=== PATIENT | female | born 1945 | race Two or more races ===

== ENCOUNTER 2019-12-30 16:03 | Emergency (ER) | payer OTHER ==
[~2019-12-30] VITALS: Ht 157.5 cm; Wt 79.4 kg
[2019-12-30] MEDS ORDERED: ALTACE10 MG (16:40)
[2019-12-30] MEDS ORDERED: EVISTA60 MG (16:40)
[2019-12-30] MEDS ORDERED: SYNTHROID100 MCG (16:40)
[2019-12-30] MEDS ORDERED: CALTRATE 600+D1 EAC1 (16:41)
== END 2019-12-30 21:49 | disposition home or self-care (01) ==
LOC: ER 16:03
DX: N39.0 Urinary tract infection, site not specified (principal); E86.0 Dehydration; K57.30 Diverticulosis of large intestine without perforation or abscess without bleeding; R10.32 Left lower quadrant pain

== ENCOUNTER 2021-05-20 09:58 | Emergency (ER) | payer OTHER ==
[~2021-05-20] VITALS: Ht 157.5 cm; Wt 70.3 kg
[~2021-05-20 09:58] MED LIST: ALTACE10 MG; CALTRATE 600+D1 EAC1; EVISTA60 MG; SYNTHROID100 MCG
[2021-05-20] MEDS ORDERED: DICY20TA PO (15:47)
[2021-06-05] MEDS ORDERED: COZAAR50 MG PO (08:54)
[2021-06-05] MEDS ORDERED: PLAQUENIL PO (08:56)
[2021-06-05] MEDS ORDERED: SKELAXIN800 MG PO (08:56)
[2021-06-05] MEDS ORDERED: GABAPENTIN100 M2 PO (08:56)
[2021-06-05] MEDS ORDERED: PROTONIX40 MG PO (08:57)
[2021-06-11] MEDS ORDERED: HYDROXYCHLOROQ200 MG (09:06)
[2021-06-11] MEDS ORDERED: OPTIMAL D31250 MCG (09:06)
[2021-06-11] MEDS ORDERED: FLUOROMETHOLONE5 ML (09:07)
[2021-06-11] MEDS ORDERED: SIMVASTATIN20 MG (09:07)
[2021-06-11] MEDS ORDERED: CLOTRIMAZOLE-BE15 G1 (09:07)
== END 2021-05-20 16:23 | disposition home or self-care (01) ==
LOC: ER 09:58
DX: K57.90 Diverticulosis of intestine, part unspecified, without perforation or abscess without bleeding (principal); R10.32 Left lower quadrant pain

== ENCOUNTER 2021-07-02 08:43 | Outpatient (CLI) | payer OTHER ==
[~2021-07-02 08:43] MED LIST changes: +CLOTRIMAZOLE-BE15 G1; +COZAAR50 MG PO; +DICY20TA PO; +FLUOROMETHOLONE5 ML; +GABAPENTIN100 M2 PO; +HYDROXYCHLOROQ200 MG; +OPTIMAL D31250 MCG; +PLAQUENIL PO; +PROTONIX40 MG PO; +SIMVASTATIN20 MG; +SKELAXIN800 MG PO
== END 2021-07-02 08:45 | disposition home or self-care (01) ==
LOC: LAB 08:43
PROVIDERS: ATTEND Internal Medicine Hematology & Oncology
DX: M05.29 Rheumatoid vasculitis with rheumatoid arthritis of multiple sites (principal); R79.89 Other specified abnormal findings of blood chemistry; R74.02 Elevation of levels of lactic acid dehydrogenase [LDH]; K76.89 Other specified diseases of liver; D69.6 Thrombocytopenia, unspecified; D63.8 Anemia in other chronic diseases classified elsewhere; E03.8 Other specified hypothyroidism; E06.3 Autoimmune thyroiditis; D68.8 Other specified coagulation defects; D69.1 Qualitative platelet defects; B18.8 Other chronic viral hepatitis; K29.70 Gastritis, unspecified, without bleeding; M85.88 Other specified disorders of bone density and structure, other site

== ENCOUNTER 2021-08-04 08:00 | Outpatient (CLI) | payer OTHER | END 2021-08-04 08:30 | disposition home or self-care (01) | LOC: PPH VACUNA 08:00 | PROVIDERS: ATTEND Emergency Medicine Pediatric Emergency Medicine | DX: Z23 Encounter for immunization (principal) ==

== ENCOUNTER 2021-10-17 20:11 | Emergency (ER) | payer OTHER ==
[~2021-10-17] VITALS: Ht 152.4 cm; Wt 78.5 kg
== END 2021-10-18 00:28 | disposition home or self-care (01) ==
LOC: ER 20:11
DX: R10.32 Left lower quadrant pain (principal)

== ENCOUNTER 2023-08-24 07:10 | Emergency (ER) | payer OTHER ==
[~2023-08-24] VITALS: Ht 157.5 cm; Wt 78.0 kg
[2023-08-24 08:44] LABS: HEMATOCRIT 36.5 % (36.0-45.00); MEAN CELL VOLUME 94.5 fL (80.00-100.00); MEAN CORPUSCULAR HGB CONC 32.8 g/dl (32.0-36.0); PLATELET COUNT 180 K/uL (150-450); RED BLOOD COUNT 3.86 M/uL (4.00-6.00); RED CELL DISTRIBUTION WIDTH 13.6 % (11.5-14.5)
[2023-08-24 09:01] LABS: PH,URINE 6.5 (5.0-8.0); URINE APPEARANCE Clear; URINE BILIRRUBIN Negative (NEGATIVE); URINE BLOOD Negative; URINE COLOR Yellow; URINE GLUCOSE Negative (NEGATIVE); URINE LEUKOCYTE Negative; URINE NITRATE Negative; URINE PROTEIN Negative (NEGATIVE); URINE UROBILINOGEN 0.2 E.U./dl
[2023-08-24 09:05] LABS: URINE BACTERIA 7.5 uL (0.0-1933); URINE EPITHELIAL CELLS 1.6 uL (0.0-38.8); URINE RBC 5.8 uL (0.0-20.8); URINE WBC 3.9 uL (0.0-23.2)
[2023-08-24 09:13] LABS: ALBUMIN 3.7 gm/dL (3.4-5.0); BILIRUBIN TOTAL 0.39 mg/dL (0.3-1.2); CALCIUM 8.5 mg/dL (8.5-10.1); CREATININE SERUM 0.82 mg/dL (0.55-1.02); GFR 67.78; GLOBULINA 3.7 G/DL (2.4-3.5); POTASSIUM 3.54 mEq/L (3.5-5.1); TOTAL PROTEIN 7.4 gm/dL (6.4-8.2)
== END 2023-08-24 14:01 | disposition home or self-care (01) ==
LOC: ER 07:10
PROVIDERS: General Practice
DX: R10.9 Unspecified abdominal pain (principal); I10 Essential (primary) hypertension; Z88.6 Allergy status to analgesic agent
CPT/HCPCS: 36415; 74177; 96365; 99284; J3490; Q9965